=== PATIENT | female | born 2000 ===

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

== ENCOUNTER 2021-02-22 16:49 | Outpatient (CLI) | payer OTHER ==
[2021-02-22 17:38] VITALS: BP 122/77
== END 2021-02-22 18:59 | disposition home or self-care (01) ==
LOC: TRG 16:49 → APU 16:51 → TRG 18:59
PROVIDERS: ATTEND Obstetrics & Gynecology
DX: Z34.93 Encounter for supervision of normal pregnancy, unspecified, third trimester (principal); Z3A.40 40 weeks gestation of pregnancy
CPT/HCPCS: 59025

== ENCOUNTER 2021-02-26 18:57 | Inpatient (IN) | payer OTHER ==
[2021-02-26] MEDS ORDERED: OXYTOCIN 10 UNIT/1 ML INJ IM PRN (20:09)
[2021-02-26] MEDS ORDERED: NalbUPHINE 10 MG/1 ML INJ IV PRN (20:09)
[2021-02-26] MEDS ORDERED: MINERAL OIL 30 ML ORAL LIQD PO PRN (20:09)
[2021-02-26] MEDS ORDERED: LOPERAMIDE 2 MG CAP PO PRN (20:09)
[2021-02-26] MEDS ORDERED: TERBUTALINE 1 MG/1 ML INJ SUB-Q PRN (20:09)
[2021-02-26] MEDS ORDERED: miSOPROStol 200 MCG TAB PR PRN (20:09)
[2021-02-26] MEDS ORDERED: CARBOPROST TROMETHAMINE 250 MCG/1 ML INJ IM PRN (20:09)
[2021-02-26] MEDS ORDERED: ACETAMINOPHEN 325 MG TAB PO PRN (20:09)
[2021-02-26] MEDS ORDERED: ONDANSETRON 4 MG/2 ML INJ IV PRN (20:09)
[2021-02-26] MEDS ORDERED: LIDOCAINE (2%) 20 MG/1 ML VIAL 20 ML MDV INFILTRATI ONE (20:09)
[2021-02-26] MEDS ORDERED: METHYLERGONOVINE MALEATE 0.2 MG/ML VIAL IM PRN (20:09)
[2021-02-26] MEDS ORDERED: ePHEDrine SULFATE 50 MG/1 ML INJ IV PRN (20:09)
[2021-02-26] MEDS ORDERED: OXYTOCIN DRIP 30 UNITS/500 ML BAG IV SCH ×2 (21:00)
[2021-02-26 21:08] LABS: Hematocrit 33.4 % (30.3-42.9); Hemoglobin 11.1 gm/dl (10.1-14.3); Mean Corpuscular HGB Conc 33 % (30-34); Mean Corpuscular Volume 83 fl (79-97); Platelet Count 305 K/mm3 (140-440); Red Blood Count 4.02 M/mm3 (3.65-5.03); Red Cell Distribution Width 15.4 % (13.2-15.2)
[2021-02-26] MEDS: LACTATED RINGERS 1,000 ML IV SCH (23:09)
[2021-02-27] MEDS: fentaNYL 100 MCG/2 ML INJ IV PRN ×3 (01:04→06:19)
[2021-02-27] MEDS: LACTATED RINGERS 1,000 ML IV SCH ×2 (03:24→08:11)
[2021-02-27] MEDS ORDERED: NalbUPHINE 10 MG/1 ML INJ IV PRN (06:26)
[2021-02-27] MEDS ORDERED: ONDANSETRON 4 MG/2 ML INJ IV PRN (06:26)
[2021-02-27] MEDS ORDERED: LACTATED RINGERS 250 ML IV SOLN IV ONE (06:26)
[2021-02-27] MEDS ORDERED: NALOXONE 2 MG/2 ML INJ IV PRN (06:26)
[2021-02-27] MEDS ORDERED: diphenhydrAMINE 50 MG/ML VIAL IV PRN (06:26)
--- NOTE | 2021-02-27 06:41 | History and Physical Report ---
History of Present Illness Date of examination: 02/26/21 Date of admission: 02/26/2021 Chief complaint: my water broke History of present illness: Pt presents to triage with c/o SROM at 1700pm of clear fluid. Pt confirmed SROM by RN at time of admission. Clear fluid noted. GBS negative. EDC Confirmation: 02/22/2021 Gestational Age: 40 5/7 weeks Past History : 2 Term Births: 0 Premature Births: 0 Living Children: 0 Para: 0 Mult. Births: 0 Prev : 0 Aborta: 1 Elect. Ab: 0 Spont. 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 % Sun Exposure: occasionally Dietary Counseling: pn yes Past Medical History: Reviewed history and no changes required: 5 years ago: abnormal bleeding was put on Depo Asthma: Exercise induced Past Surgical History: Reviewed history and no changes required: negative Past Medical History Anesthesia Complications: negative Anemia: negative Autoimmune Disorder: negative Bleeding Disorder: negative Blood Transfusions: negative Breast Disease: negative Diabetes: negative Heart Disease: negative Hypertension: negative Hepatitis/Liver Disease: negative Kidney Disease/UTI: negative Neurologic/Epilepsy/Migraines: negative Phlebitis/Varicosities: negative Psychiatric: negative Pulmonary Disease/Asthma: negative Thyroid Disease: negative Hospitalizations: negative Surgery (Non-ob/gyn doctor): negative Abnormal PAP: negative ENEIDA Exposure: negative Infertility: negative Uterine Anomaly: negative Uterine Surgery (not C/S): negative Other Gynecologic Problems: negative Family Hx: DM: MGM Father: hole in heart had surgery 2 years ago Infection History Hx of STD: chlamydia HIV Risk Eval: no Hepatitis B Risk Eval: low risk Personal hx. of genital herpes: no Partner hx. of genital herpes: no Rash, Viral, or Febrile illness since last LMP? no Varicella/Chicken Pox Status: No TB Risk: no Genetic History Congenital Heart Defect: Mom: no Dad: no Macarena Disease: Mom: no Dad: no Thalassemia Mom: no Dad: no Neural Tube Defect Mom: no Dad: no Down's Syndrome Mom: no Dad: no Edward-Sachs Mom: no Dad: no Sickle Cell Disease/Trait Mom: no Dad: no Hemophilia Mom: no Dad: no Muscular Dystrophy Mom: no Dad: no Cystic Fibrosis Mom: no Dad: no Soledad Chorea Mom: no Dad: no Mental Retardation Mom: no Dad: no Fragile X Mom: no Dad: no Other Genetic/Chromosomal Disorder Mom: no Dad: no Child w/other defect Mom: no Dad: no Enviromental Exposures Enviromental Exposures Reviewed Xray Exposure: no Medication, drug, or alcohol use since LMP: no Chemical/Other Exposure: no Exposure to Cat Liter: no Hx of Parvovirus (Fifth Disease): no Occupational Exposure to Children: none Active Medications (reviewed today): ONDANSETRON 8 MG ORAL TABLET DISINTEGRATING (ONDANSETRON) 1 po q12hrs prn Current Allergies (reviewed today): No known allergies Past History Past Medical History: other (see hpi) Past Surgical History: other (see hpi) 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) Family/Genetic History: other (see hpi) Social history: other (see hpi) - Obstetrical History Expected Date of Delivery: 02/22/21 Actual Gestation: 40 Week(s) 5 Day(s) : 2 Medications and Allergies Allergies Allergy/AdvReac Type Severity Reaction Status Date / Time No Known Allergies Allergy Verified 12/18/20 18:26 Home Medications Medication Instructions Recorded Confirmed Last Taken Type No Known Home Medications [No 02/26/21 02/26/21 Unknown History Reported Home Medications] Active Meds: Active Medications Acetaminophen (Acetaminophen 325 Mg Tab) 650 mg PO Q4H PRN PRN Reason: Pain, Mild (1-3) Carboprost Tromethamine (Carboprost Tromethamine 250 Mcg/1 Ml Inj) 250 mcg IM ONCE PRN PRN Reason: Uterine Bleeding Diphenhydramine HCl (Diphenhydramine 50 Mg/Ml Vial) 12.5 mg IV Q2H PRN PRN Reason: Itching Ephedrine Sulfate (Ephedrine Sulfate 50 Mg/1 Ml Inj) 10 mg IV Q2M PRN PRN Reason: Hypotension Fentanyl (Fentanyl 100 Mcg/2 Ml Inj) 100 mcg IV Q2H PRN PRN Reason: Pain,Severe (7-10) LABOR PAIN Last Admin: 02/27/21 06:19 Dose: 100 mcg Documented by: Oxytocin/Sodium Chloride (Pitocin/Ns 30 Unit/500ml) 30 units in 500 mls @ 2 mls/hr IV TITR SHAMAR; Protocol Last Admin: 02/26/21 23:15 Dose: 2 ml/hr, 2 mls/hr Documented by: Lactated Ringer's (Lactated Ringers) 1,000 mls @ 125 mls/hr IV DIRECT SHAMAR Last Admin: 02/27/21 03:24 Dose: 125 mls/hr Documented by: Oxytocin/Sodium Chloride (Pitocin/Ns 30 Unit/500ml) 30 units in 500 mls @ 40 mls/hr IV TITR SHAMAR; Protocol Fentanyl/Bupivacaine/Sodium Chlor (Fentanyl-Bupiv 2 Mcg/Ml-0.125%) 200 mcg in 100 mls @ 12 mls/hr EPIDURAL TITR SHAMAR; Protocol Loperamide HCl (Loperamide 2 Mg Cap) 2 mg PO ONCE PRN PRN Reason: give with Hemabate Methylergonovine Maleate (Methylergonovine Maleate 0.2 Mg/Ml Vial) 0.2 mg IM ONCE PRN PRN Reason: Uterine Bleeding Mineral Oil (Mineral Oil 30 Ml Oral Liqd) 30 ml PO QHS PRN PRN Reason: Constipation Misoprostol (Misoprostol 200 Mcg Tab) 800 mcg [place] ONCE PRN PRN Reason: Uterine Bleeding Nalbuphine HCl (Nalbuphine 10 Mg/1 Ml Inj) 10 mg IV Q2H PRN PRN Reason: Pain, Moderate (4-6) Nalbuphine HCl (Nalbuphine 10 Mg/1 Ml Inj) 2.5 mg IV Q2H PRN PRN Reason: Itching Naloxone HCl (Naloxone 2 Mg/2 Ml Inj) 0.2 mg IV Q5M PRN PRN Reason: Respiratory sedation Ondansetron HCl (Ondansetron 4 Mg/2 Ml Inj) 4 mg IV Q8H PRN PRN Reason: Nausea And Vomiting Oxytocin (Oxytocin 10 Unit/1 Ml Inj) 10 unit IM ONCE PRN PRN Reason: Uterine Bleeding Terbutaline Sulfate (Terbutaline 1 Mg/1 Ml Inj) 0.25 mg SUB-Q ONCE PRN PRN Reason: Hyperstimulation/Hypertonicity - Vital Signs Vital signs: Vital Signs Pulse Pulse Ox 115 H 98 02/26/21 19:39 02/26/21 19:39 Temp Pulse Resp BP Pulse Ox 98.2 F 72 17 139/88 96 02/27/21 04:25 02/27/21 06:36 02/27/21 04:25 02/27/21 06:13 02/27/21 06:36 - Physical Exam Lungs: Positive: Clear to auscultation, Normal air movement Abdomen: Positive: normal appearance, soft Genitourinary (Female): Positive: normal external genitalia, normal perenium. Negative: perineal/vulvar lesions - Obstetrical FHR: category 1 Cervical Dilatation: 5.5 Cervical Effacement Percentage: 80 station: -1 Uterine Contraction Pattern: Regular Uterine Tone Measurement Phase: Resting Uterine Contraction Intensity: Moderate Results Result Diagrams: 02/26/21 20:45 Abnormal lab results 02/26/21 Range/Units 20:45 WBC 14.5 H (4.5-11.0) K/mm3 RDW 15.4 H (13.2-15.2) % All other labs normal. Assessment and Plan - Patient Problems (1) 40 weeks gestation of Current Visit: Yes Status: Acute (2) SROM (spontaneous rupture of membranes) Current Visit: Yes Status: Acute Plan to address problem: -anticipate -awaiting epidural placement -cont pitocin
--- NOTE | 2021-02-27 06:43 | Event Note ---
Date: 02/27/21 Rewiew of chart shows pt has had some variable decels mostly early. Provider was not made aware. Will place internal monitors at this time. Explained to pt the importance of these monitors for accurate tracing of the baby. All risk, benefits and alternatives were also d/w pt. Pt also noted to have elevated blood pressures again provider was not aware until this time and PIH labs have been ordered. Internal montiors placed w/o difficulty cx is 5-6/80/-1
[2021-02-27] MEDS ORDERED: fentaNYL-BUPIV 2 MCG/ML-0.125% 200 MCG/100 ML BAG EPIDURAL SCH (07:00)
[2021-02-27 07:53] LABS: Alanine Aminotransferase 12 units/L (7-56); Albumin 3.4 g/dL (3.9-5); Blood Urea Nitrogen 9 mg/dL (7-17); Calcium 8.8 mg/dL (8.4-10.2); Hemolysis Index 2
--- NOTE | 2021-02-27 07:57 | Anesthesia Consultation ---
Anesthesia Consult and Med Hx Date of service: 02/27/21 - Airway Anesthetic Teeth Evaluation: Good ROM Head & Neck: Adequate Mental/Hyoid Distance: Adequate Mallampati Class: Class II Intubation Access Assessment: Probably Good - Pulmonary Exam CTA: Yes - Cardiac Exam Cardiac Exam: RRR - Pre-Operative Health Status ASA Pre-Surgery Classification: ASA2 Proposed Anesthetic Plan: Epidural - Pulmonary Hx Smoking: Yes Hx Asthma: Yes (last attack about 3 years ago) COPD: No Hx Pneumonia: No Hx Sleep Apnea: No - Cardiovascular System Hx Hypertension: No Hx Heart Attack/AMI: No Hx Angina: No - Central Nervous System Hx Seizures: No Hx Psychiatric Problems: No - Gastrointestinal Hx Gastroesophageal Reflux Disease: No - Endocrine Hx Renal Disease: No Hx End Stage Renal Disease: No Hx Liver Disease: No Hx Insulin Dependent Diabetes: No Hx Non-Insulin Dependent Diabetes: No Hx Hypothyroidism: No Hx Hyperthyroidism: No - Hematic Hx Anemia: No Hx Sickle Cell Disease: No - Other Systems Hx Alcohol Use: No
--- NOTE | 2021-02-27 07:59 | Progress Note ---
Labor Epidural - Labor Epidural Start Time: 07:30 Stop Time: 07:45 Performed by:: LESLIE HARTMAN [facility] Procedure: Patient is requesting epidural for labor and pain. H&P, labs were reviewed. Patient IDed, H&P reviewed, all questions and concerns were answered, and consent was signed. Timeout was performed at bedside. Patient in sitting position. Sterile prep and drape was performed. 3ml of 1% lidocaine skin wheal at L[3]- L [4]. 18-gauge [employer] epidural needle was advanced to loss of resistance with air technique 7cm. Negative CSF negative blood. Epidural catheter advanced to [12] centimeters. [negative] Aspiration [negative] test dose. Sterile dressing applied. Patient tolerated procedure.
[2021-02-27 08:01] LABS: BUN/Creatinine Ratio 18
[2021-02-27] MEDS: ePHEDrine SULFATE 50 MG/1 ML INJ IV PRN ×2 (08:16→08:34)
--- NOTE | 2021-02-27 08:34 | Progress Note ---
Assessment and Plan A: 21yo female @ 40+ weeks, on left side S/P epidural d/t low B/P and decels, decels resolved w/ intervention. Pt comfortable S/P epidural. SVE performed, /2. P: Reposition pt in 1 hour and PRN for labor progress, reassess PRN Subjective - Subjective Date of service: 02/27/21 Principal diagnosis: IUP @ 40+WEEKS Objective - Vital Signs Vital Signs: Vital Signs - 12hr 02/26/21 02/26/21 02/26/21 20:34 20:39 20:44 Temperature Pulse Rate 106 H 95 H 93 H Respiratory Rate Blood Pressure O2 Sat by Pulse 98 98 97 Oximetry O2 Sat by Pulse Oximetry [ Anterior Bilateral Throughout] 02/26/21 02/26/21 02/26/21 20:48 20:49 20:54 Temperature Pulse Rate 107 H 88 101 H Respiratory Rate Blood Pressure O2 Sat by Pulse 94 94 96 Oximetry O2 Sat by Pulse Oximetry [ Anterior Bilateral Throughout] 02/26/21 02/26/21 02/26/21 20:59 21:04 21:09 Temperature Pulse Rate 107 H 107 H 97 H Respiratory Rate Blood Pressure O2 Sat by Pulse 96 97 97 Oximetry O2 Sat by Pulse Oximetry [ Anterior Bilateral Throughout] 02/26/21 02/26/21 02/26/21 21:14 21:19 21:24 Temperature Pulse Rate 108 H 111 H 105 H Respiratory Rate Blood Pressure O2 Sat by Pulse 98 97 95 Oximetry O2 Sat by Pulse Oximetry [ Anterior Bilateral Throughout] 02/26/21 02/26/21 02/26/21 21:27 21:38 21:46 Temperature 98.4 F Pulse Rate 103 H 119 H Respiratory 18 Rate Blood Pressure O2 Sat by Pulse 94 95 Oximetry O2 Sat by Pulse 96 Oximetry [ Anterior Bilateral Throughout] 02/26/21 02/26/21 02/26/21 21:51 21:56 22:01 Temperature Pulse Rate 110 H 100 H 107 H Respiratory Rate Blood Pressure O2 Sat by Pulse 96 96 97 Oximetry O2 Sat by Pulse Oximetry [ Anterior Bilateral Throughout] 02/26/21 02/26/21 02/26/21 22:06 22:11 22:16 Temperature Pulse Rate 104 H 109 H 104 H Respiratory Rate Blood Pressure O2 Sat by Pulse 97 96 96 Oximetry O2 Sat by Pulse Oximetry [ Anterior Bilateral Throughout] 02/26/21 02/26/21 02/26/21 22:21 22:26 22:31 Temperature Pulse Rate 93 H 100 H 99 H Respiratory Rate Blood Pressure O2 Sat by Pulse 98 97 95 Oximetry O2 Sat by Pulse Oximetry [ Anterior Bilateral Throughout] 02/26/21 02/26/21 02/26/21 22:32 22:36 22:40 Temperature Pulse Rate 101 H 105 H 108 H Respiratory Rate Blood Pressure O2 Sat by Pulse 94 97 94 Oximetry O2 Sat by Pulse Oximetry [ Anterior Bilateral Throughout] 02/26/21 02/26/21 02/26/21 22:41 22:46 22:51 Temperature Pulse Rate 92 H 102 H 103 H Respiratory Rate Blood Pressure O2 Sat by Pulse 96 97 96 Oximetry O2 Sat by Pulse Oximetry [ Anterior Bilateral Throughout] 02/26/21 02/26/21 02/26/21 22:56 22:58 23:01 Temperature Pulse Rate 100 H 107 H 103 H Respiratory Rate Blood Pressure O2 Sat by Pulse 95 94 96 Oximetry O2 Sat by Pulse Oximetry [ Anterior Bilateral Throughout] 02/26/21 02/26/21 02/26/21 23:03 23:06 23:11 Temperature Pulse Rate 90 106 H 120 H Respiratory Rate Blood Pressure O2 Sat by Pulse 94 96 96 Oximetry O2 Sat by Pulse Oximetry [ Anterior Bilateral Throughout] 02/26/21 02/26/21 02/26/21 23:15 23:16 23:21 Temperature Pulse Rate 96 H 91 H 93 H Respiratory Rate Blood Pressure O2 Sat by Pulse 94 96 96 Oximetry O2 Sat by Pulse Oximetry [ Anterior Bilateral Throughout] 02/26/21 02/26/21 02/26/21 23:26 23:31 23:36 Temperature Pulse Rate 84 92 H 93 H Respiratory Rate Blood Pressure O2 Sat by Pulse 98 97 96 Oximetry O2 Sat by Pulse Oximetry [ Anterior Bilateral Throughout] 02/26/21 02/26/21 02/26/21 23:41 23:46 23:51 Temperature Pulse Rate 95 H 95 H 91 H Respiratory Rate Blood Pressure O2 Sat by Pulse 96 96 96 Oximetry O2 Sat by Pulse Oximetry [ Anterior Bilateral Throughout] 02/26/21 02/27/21 02/27/21 23:56 00:01 00:06 Temperature Pulse Rate 91 H 96 H 94 H Respiratory Rate Blood Pressure O2 Sat by Pulse 95 96 96 Oximetry O2 Sat by Pulse Oximetry [ Anterior Bilateral Throughout] 02/27/21 02/27/21 02/27/21 00:11 00:16 00:17 Temperature Pulse Rate 109 H 104 H 106 H Respiratory Rate Blood Pressure O2 Sat by Pulse 96 95 92 Oximetry O2 Sat by Pulse Oximetry [ Anterior Bilateral Throughout] 02/27/21 02/27/21 02/27/21 00:21 00:26 00:29 Temperature Pulse Rate 99 H 97 H 93 H Respiratory Rate Blood Pressure O2 Sat by Pulse 95 95 92 Oximetry O2 Sat by Pulse Oximetry [ Anterior Bilateral Throughout] 02/27/21 02/27/21 02/27/21 00:31 00:35 00:36 Temperature Pulse Rate 92 H 67 86 Respiratory Rate Blood Pressure O2 Sat by Pulse 96 85 98 Oximetry O2 Sat by Pulse Oximetry [ Anterior Bilateral Throughout] 02/27/21 02/27/21 02/27/21 03:34 03:39 03:40 Temperature Pulse Rate 82 78 94 H Respiratory Rate Blood Pressure O2 Sat by Pulse 95 97 93 Oximetry O2 Sat by Pulse Oximetry [ Anterior Bilateral Throughout] 02/27/21 02/27/21 02/27/21 03:44 03:49 03:54 Temperature Pulse Rate 94 H 81 77 Respiratory Rate Blood Pressure O2 Sat by Pulse 99 97 97 Oximetry O2 Sat by Pulse Oximetry [ Anterior Bilateral Throughout] 02/27/21 02/27/21 02/27/21 03:59 04:04 04:09 Temperature Pulse Rate 80 77 75 Respiratory Rate Blood Pressure O2 Sat by Pulse 96 98 97 Oximetry O2 Sat by Pulse Oximetry [ Anterior Bilateral Throughout] 02/27/21 02/27/21 02/27/21 04:14 04:19 04:24 Temperature Pulse Rate 81 90 87 Respiratory Rate Blood Pressure O2 Sat by Pulse 98 97 99 Oximetry O2 Sat by Pulse Oximetry [ Anterior Bilateral Throughout] 02/27/21 02/27/21 02/27/21 04:25 04:29 04:34 Temperature 98.2 F Pulse Rate 66 81 Respiratory 17 Rate Blood Pressure O2 Sat by Pulse 99 98 Oximetry O2 Sat by Pulse Oximetry [ Anterior Bilateral Throughout] 02/27/21 02/27/21 02/27/21 04:39 04:44 04:49 Temperature Pulse Rate 78 73 86 Respiratory Rate Blood Pressure O2 Sat by Pulse 98 99 100 Oximetry O2 Sat by Pulse Oximetry [ Anterior Bilateral Throughout] 02/27/21 02/27/21 02/27/21 04:54 04:59 05:12 Temperature Pulse Rate 79 82 93 H Respiratory Rate Blood Pressure 146/72 O2 Sat by Pulse 98 99 98 Oximetry O2 Sat by Pulse Oximetry [ Anterior Bilateral Throughout] 02/27/21 02/27/21 02/27/21 05:17 05:22 05:27 Temperature Pulse Rate 76 89 83 Respiratory Rate Blood Pressure O2 Sat by Pulse 98 95 99 Oximetry O2 Sat by Pulse Oximetry [ Anterior Bilateral Throughout] 02/27/21 02/27/21 02/27/21 05:32 05:35 05:37 Temperature Pulse Rate 99 H 80 78 Respiratory Rate Blood Pressure O2 Sat by Pulse 96 91 98 Oximetry O2 Sat by Pulse Oximetry [ Anterior Bilateral Throughout] 02/27/21 02/27/21 02/27/21 05:42 05:46 05:52 Temperature Pulse Rate 73 70 79 Respiratory Rate Blood Pressure O2 Sat by Pulse 99 98 97 Oximetry O2 Sat by Pulse Oximetry [ Anterior Bilateral Throughout] 02/27/21 02/27/21 02/27/21 05:57 06:02 06:07 Temperature Pulse Rate 74 81 83 Respiratory Rate Blood Pressure O2 Sat by Pulse 98 96 97 Oximetry O2 Sat by Pulse Oximetry [ Anterior Bilateral Throughout] 02/27/21 02/27/21 02/27/21 06:12 06:13 06:17 Temperature Pulse Rate 91 H 88 85 Respiratory Rate Blood Pressure 139/88 O2 Sat by Pulse 96 97 Oximetry O2 Sat by Pulse Oximetry [ Anterior Bilateral Throughout] 02/27/21 02/27/21 02/27/21 06:21 06:27 06:32 Temperature Pulse Rate 89 89 86 Respiratory Rate Blood Pressure O2 Sat by Pulse 96 96 95 Oximetry O2 Sat by Pulse Oximetry [ Anterior Bilateral Throughout] 02/27/21 02/27/21 02/27/21 06:36 06:42 06:47 Temperature Pulse Rate 72 78 88 Respiratory Rate Blood Pressure O2 Sat by Pulse 96 95 94 Oximetry O2 Sat by Pulse Oximetry [ Anterior Bilateral Throughout] 02/27/21 02/27/21 02/27/21 06:52 06:57 07:02 Temperature Pulse Rate 77 75 80 Respiratory Rate Blood Pressure O2 Sat by Pulse 96 96 97 Oximetry O2 Sat by Pulse Oximetry [ Anterior Bilateral Throughout] 02/27/21 02/27/21 02/27/21 07:07 07:11 07:12 Temperature Pulse Rate 78 85 90 Respiratory Rate Blood Pressure O2 Sat by Pulse 95 93 97 Oximetry O2 Sat by Pulse Oximetry [ Anterior Bilateral Throughout] 02/27/21 02/27/21 02/27/21 07:17 07:22 07:25 Temperature Pulse Rate 89 83 72 Respiratory Rate Blood Pressure 130/90 O2 Sat by Pulse 93 97 Oximetry O2 Sat by Pulse Oximetry [ Anterior Bilateral Throughout] 02/27/21 02/27/21 02/27/21 07:27 07:32 07:36 Temperature Pulse Rate 84 83 85 Respiratory Rate Blood Pressure O2 Sat by Pulse 97 96 96 Oximetry O2 Sat by Pulse Oximetry [ Anterior Bilateral Throughout] 02/27/21 02/27/21 02/27/21 07:42 07:47 07:49 Temperature Pulse Rate 101 H 94 H 82 Respiratory Rate Blood Pressure 128/62 O2 Sat by Pulse 98 97 88 Oximetry O2 Sat by Pulse Oximetry [ Anterior Bilateral Throughout] 02/27/21 02/27/21 02/27/21 07:50 07:52 07:55 Temperature Pulse Rate 83 75 Respiratory 16 Rate Blood Pressure 119/56 112/57 O2 Sat by Pulse 97 Oximetry O2 Sat by Pulse Oximetry [ Anterior Bilateral Throughout] 02/27/21 02/27/21 02/27/21 07:57 07:58 08:01 Temperature Pulse Rate 70 66 71 Respiratory Rate Blood Pressure 107/59 109/56 O2 Sat by Pulse 95 Oximetry O2 Sat by Pulse Oximetry [ Anterior Bilateral Throughout] 02/27/21 02/27/21 02/27/21 08:02 08:04 08:07 Temperature Pulse Rate 71 76 74 Respiratory Rate Blood Pressure 101/53 102/57 O2 Sat by Pulse 97 97 Oximetry O2 Sat by Pulse Oximetry [ Anterior Bilateral Throughout] 02/27/21 02/27/21 02/27/21 08:10 08:12 08:13 Temperature Pulse Rate 67 71 67 Respiratory Rate Blood Pressure 106/55 95/50 O2 Sat by Pulse 97 Oximetry O2 Sat by Pulse Oximetry [ Anterior Bilateral Throughout] 02/27/21 02/27/21 02/27/21 08:16 08:17 08:20 Temperature Pulse Rate 61 61 59 L Respiratory Rate Blood Pressure 96/55 111/56 O2 Sat by Pulse 98 Oximetry O2 Sat by Pulse Oximetry [ Anterior Bilateral Throughout] 02/27/21 02/27/21 02/27/21 08:22 08:25 08:27 Temperature Pulse Rate 62 76 68 Respiratory Rate Blood Pressure 111/59 102/55 O2 Sat by Pulse 99 99 Oximetry O2 Sat by Pulse Oximetry [ Anterior Bilateral Throughout] - Exam Cardiovascular: Regular rate Lungs: Normal air movement Abdomen: Present: normal appearance, soft Vulva: both: normal Uterus: Present: normal FHR: category 2 FHR comments: Decels after epidural d/t low B/P, resolved w/ intrauterine resus. Uterine Contraction Monitor Mode: Internal Cervical Dilatation: 6 Cervical Effacement Percentage: 80 station: -2 Uterine Contraction Frequency (min): 4-5 Uterine Contraction Pattern: Regular Uterine Tone Measurement Phase: Contraction Uterine Contraction Intensity: Moderate - Labs Labs: Abnormal Labs 02/26/21 02/27/21 02/27/21 20:45 07:04 07:04 WBC 14.5 H RDW 15.4 H Carbon Dioxide 17 L Creatinine 0.5 L 0.5 L Alkaline Phosphatase 193 H Total Protein 5.7 L Albumin 3.4 L Laboratory Results - last 24 hr 02/26/21 02/26/21 02/26/21 20:45 20:45 20:45 WBC 14.5 H RBC 4.02 Hgb 11.1 Hct 33.4 MCV 83 MCH 28 MCHC 33 RDW 15.4 H Plt Count 305 Sodium Potassium Chloride Carbon Dioxide Anion Gap BUN Creatinine Estimated GFR BUN/Creatinine Ratio Glucose Calcium Total Bilirubin AST ALT Alkaline Phosphatase Lactate Dehydrogenase Total Protein Albumin Albumin/Globulin Ratio Syphilis IgG Antibody Nonreactive Blood Type A POSITIVE Antibody Screen Negative 02/27/21 02/27/21 07:04 07:04 WBC RBC Hgb Hct MCV MCH MCHC RDW Plt Count Sodium 138 Potassium 4.0 Chloride 106.5 Carbon Dioxide 17 L Anion Gap 19 BUN 9 Creatinine 0.5 L 0.5 L Estimated GFR > 60 > 60 BUN/Creatinine Ratio 18 Glucose 74 Calcium 8.8 Total Bilirubin 0.20 AST 21 ALT 12 Alkaline Phosphatase 193 H Lactate Dehydrogenase 176 Total Protein 5.7 L Albumin 3.4 L Albumin/Globulin Ratio 1.5 Syphilis IgG Antibody Blood Type Antibody Screen
[2021-02-27] MEDS ORDERED: SODIUM CHLORIDE 0.9% 1000 ML 1,000 ML VG SCH (09:15)
--- NOTE | 2021-02-27 09:35 | Event Note ---
Date: 02/27/21 ( decelerations) Called by RN d/t heart rate decelerations. Upon entering room the heart rate had recovered with interventions. Then 5 minutes later there was another prolonged deceleration for about 3 minutes. There was heart rate recovery, but the Pitocin had been turned off so I discussed with the patient the need for a at this time because the baby did not seem to tolerate labor, her cervical exam was only 7/80/-1, and that we had to turn off the medicine that makes her contract. Pt began to cry but verbalized understanding. I also spoke with the patient's mother regarding need for (with the patient's permission). Dr. Jefferson called and updated on patient's and status. orders placed and patient being prepped for . supervisor steno pool and patient taking care of patient aware.
[2021-02-27] MEDS ORDERED: PROMETHAZINE 25 MG RECT SUPP PR PRN (09:49)
[2021-02-27] MEDS ORDERED: PROMETHAZINE 25 MG TAB PO PRN (09:49)
[2021-02-27] MEDS ORDERED: HYDROmorphone 1 MG/1 ML INJ IV PRN (09:49)
[2021-02-27] MEDS ORDERED: NALOXONE 0.4 MG/1 ML INJ IV PRN ×2 (09:49→13:59)
--- NOTE | 2021-02-27 09:51 | Anesthesia Day of Surgery ---
Anesthesia Day of Surgery - Day of Surgery Patient Examined: Yes Patient H&P Reviewed: Yes Patient is NPO: Yes Beta Blockers: No Cardiac Clearance: No Pulmonary Clearance: No Dani's Test: N/A
[2021-02-27] MEDS ORDERED: KETOROLAC 30 MG/1 ML INJ ONE (09:54)
[2021-02-27] MEDS ORDERED: ONDANSETRON 4 MG/2 ML INJ ONE (09:54)
[2021-02-27] MEDS ORDERED: ceFAZolin/STERILE WATER 2 GM/20 ML SYRINGE IV ONE (09:55)
[2021-02-27] MEDS ORDERED: LIDOCAINE 2%/EPINEPHRINE 1:200,000 VIAL (20 ML) INFILTRATI ONE (09:55)
[2021-02-27] MEDS ORDERED: LACTATED RINGERS 1,000 ML IV SCH (10:00)
[2021-02-27] MEDS ORDERED: BICITRA ORAL LIQD 30ML PO ONE (10:00)
[2021-02-27] MEDS ORDERED: METOCLOPRAMIDE 10 MG/2 ML INJ IV ONE (10:00)
[2021-02-27] MEDS ORDERED: ceFAZolin/Water 2 GM/20 ML 2 GM/20 ML SYRINGE IV NR (10:00)
[2021-02-27] MEDS ORDERED: SODIUM CHLORIDE 0.9% 1000 ML 1,000 ML IV ONE (10:00)
[2021-02-27] MEDS ORDERED: FAMOTIDINE 20 MG/2 ML INJ IV ONE (10:00)
[2021-02-27] MEDS ORDERED: fentaNYL 100 MCG/2 ML INJ ONE (10:14)
--- NOTE | 2021-02-27 10:20 | Event Note ---
Date: 02/27/21 Severe variables with intermittent bradycardia, Only 7cm dilated. Intrauterine resus measures performed. Early decels noted however pitocin off and O2 palced. Diagnosis and options discussed. Risks and benefits of continued MIKE vs C/S explained. She desires to proceed with C/S Consent reviewed and signed.
[2021-02-27] MEDS ORDERED: BUPIVACAINE/PF (0.25%) 2.5 MG/ML 30 ML VIAL INFILTRATI ONE (10:31)
[2021-02-27] MEDS ORDERED: dexAMETHasone 20 MG/5 ML VIAL ONE (10:33)
[2021-02-27 10:34] LABS: Bilirubin,Urine NEG (Negative); Blood,Urine NEG (Negative); Color,Urine Yellow (Yellow); Mucus,Urine FEW /HPF; Protein,Urine <15 mg/dL mg/dL (Negative); Urobilinogen,Urine < 2.0 mg/dL (<2.0); WBC,Urine < 1.0 /HPF (0.0-6.0)
--- NOTE | 2021-02-27 11:01 | Operative Report ---
Operative Report Operative Report: Date of operation: 02/27/2021 Pre-operative diagnosis: 1. Intrauterine at 40 weeks gestational age 2. intolerance to labor 3. BMI 32.3 kg/m Post-operative diagnosis: 1. Intrauterine at 40 weeks gestational age 2. intolerance to labor 3. BMI 32.3 kg/m Procedure name(s): Primary low transverse uterine incision Surgeon: Shonda Jefferson MD E Learning Specialist: Mouna Menendez CNM Anesthesia: Epidural QBL: Not available at dictation mL Urine output: 400 mL of clear urine out at the end of the procedure Fluids: 600 mL Findings: Liveborn male infant weight 7 Lbs. 12 oz. Apgars of 8 and 9 at one and 5 minutes. Grossly normal uterus tubes and ovaries. Umbilical cord wrapped around infant's body and legs. Procedure: Patient was taking to the operating room. Epidural anesthesia was both. Patient was then prepped and draped in the usual sterile fashion Timeout was performed. Once an appropriate level of anesthesia was noted, a Pfannenstiel incision was made and extended the fascia which was incised and extended lateral direction. The overlying fascia was sharply dissected away from the underlying rectus muscles in the superior inferior direction. The midline was entered bluntly. Bladder blade was placed. Vesicouterine fold was incised with blunt dissection bladder flap was created. A transverse incision was made in the lower uterine segment and extended superolateral direction with finger fractionation. Clear fluid was noted. Infant was delivered from the cephalic OA position, caput noted, with spontaneous cry and excellent tone. Mouth and nose bulb suctioned. Cord was doubly clamped and cut infant was given to the resuscitation team present. Placenta was delivered. The uterus was exteriorized and cleaned of any further placental tissue and products of conception. Uterine incision was approximated using 0 Vicryl in a running i nterlocking stitch followed by further suture of 0 Vicryl in imbricating fashion. When hemostasis was noted the uterus was allowed back in the pelvic cavity. Pelvis was irrigated with warm normal saline. Once hemostasis was noted the rectus muscles were approximated using 0 Vicryl interrupted simple stitches 3. Once hemostasis was noted the fascia was approximated using 0 Vicryl simple running stitch. The incision was irrigated with warm saline, once hemostasis as noted, the subcuticular adipose tissue was reapproximated using 3- 0 Vicryl in a simple running fashion. Skin was approximated using 4-0 Vicryl on a Librado needle in a subcuticular manner. Counts were correct x3. Patient tolerated the procedure well, she was taken to recovery room in stable condition.
[2021-02-27] MEDS ORDERED: miSOPROStol 100 MCG TAB ONE (11:24)
[2021-02-27] MEDS ORDERED: traMADol 50 MG TAB PO PRN (13:59)
[2021-02-27] MEDS ORDERED: LANOLIN/ZINC/DIMETHICONE (LANSINOH) 7 GM TP PRN (13:59)
[2021-02-27] MEDS ORDERED: WITCH HAZEL/ GLYCERIN PAD TP PRN (13:59)
[2021-02-27] MEDS ORDERED: SENNOSIDES 8.6 MG TAB PO PRN (13:59)
[2021-02-27] MEDS ORDERED: OXYTOCIN DRIP 30 UNITS/500 ML BAG IV SCH (13:59)
[2021-02-27] MEDS ORDERED: MAGNESIUM HYDROXIDE (MOM) ORAL LIQD UDC PO PRN (13:59)
[2021-02-27] MEDS ORDERED: SIMETHICONE 80 MG CHEW TAB PO PRN (13:59)
[2021-02-27] MEDS ORDERED: MORPHINE 4 MG/1 ML INJ IV PRN (13:59)
[2021-02-27] MEDS ORDERED: MORPHINE 2 MG/1 ML INJ IV PRN (13:59)
[2021-02-27] MEDS ORDERED: D5W/LACTATED RINGERS 1,000 ML IV ONE (14:43)
[2021-02-27] MEDS ORDERED: ACETAMINOPHEN 500 MG TAB PO PRN (14:45)
[2021-02-27] MEDS: D5W/LACTATED RINGERS 1,000 ML IV SCH ×2 (16:56→22:07)
[2021-02-27] MEDS: KETOROLAC 30 MG/1 ML INJ IV SCH (18:03)
[2021-02-27] MEDS: ceFAZolin/NS 1 GM/50 ML 1 GM/50 ML BAG IV SCH (18:07)
[2021-02-28] MEDS: KETOROLAC 30 MG/1 ML INJ IV SCH ×3 (03:41→18:12)
[2021-02-28] MEDS: ceFAZolin/NS 1 GM/50 ML 1 GM/50 ML BAG IV SCH (03:42)
[2021-02-28] MEDS ORDERED: TETANUS,DIPH,PERTUSS(ACELL) VACCINE 0.5 ML SYRINGE IM ONE (06:00)
[2021-02-28 07:52] LABS: Hemoglobin 8.6 gm/dl (10.1-14.3)
[2021-02-28] MEDS: PRENATAL VIT27-FE FUMARATE-FOLIC ACID VIT TAB PO SCH (11:01)
[2021-02-28] MEDS ORDERED: IBUPROFEN 600 MG TAB PO PRN (11:12)
--- NOTE | 2021-02-28 12:12 | Post Anesthesia Evaluation ---
- Post Anesthesia Evaluation Patient Participated: Yes Airway Patent: Yes Stable Respiratory Function: Yes Nausea/Vomiting: No Temp > 96.8F: Yes Pain Manageable: Yes Adequeate Hydration: Yes Anesthesia Complications: No Block Receding Appropriately: Yes Patient on Ventilator: No
[2021-02-28] MEDS: oxyCODONE /ACETAMINOPHEN 5-325MG TAB PO PRN (12:36)
--- NOTE | 2021-02-28 12:49 | Progress Note ---
Assessment and Plan A: 21 y.o. s/p primary , POD #1. P: Continue with care. Encourage ambulation. Advance diet as tolerated. Anticipate discharge home on 03/01/21. Subjective - Subjective Date of service: 02/28/21 Principal diagnosis: s/p primary , POD #1 Patient reports: appetite normal, voiding normally, pain well controlled, flatus, ambulating normally [place]: doing well Objective - Vital Signs Latest vital signs: Vital Signs Temp Pulse Resp BP BP Pulse Ox Pulse Ox 02/28/21 07:40 98.1 F 94 H 18 115/73 97 02/28/21 06:22 98 02/28/21 04:00 98.7 F 71 18 114/78 02/28/21 03:31 98 02/28/21 01:39 98 02/28/21 00:13 98.5 F 61 18 110/60 97 02/28/21 00:05 98 02/27/21 22:04 98 02/27/21 20:32 98.9 F 88 18 118/67 93 02/27/21 20:00 98 02/27/21 16:21 97.9 F 57 L 18 124/77 96 Intake and Output 02/27/21 02/28/21 02/28/21 22:59 06:59 14:59 Intake Total 697.917 200 120 Output Total 3600 100 100 Balance -2902.083 100 20 Intake: IV 697.917 ANCEF/NS 1 GM/50 ML 1 gm 50 In 50 ml @ 100 mls/hr IV Q8H SHAMAR Rx#:[id number] D5lr 1,000 ml @ 125 mls/ 647.917 hr IV DIRECT SHAMAR Rx#: [id number] Oral 200 120 Output: Urine 3600 100 100 Indwelling 900 Indwelling Catheter 2700 Void 100 100 Other: Total, Intake Amount 200 120 Total, Output Amount 900 100 100 # Voids Void 1 1 - Exam Narrative Exam: Discussed with patient how to take care of herself when she is discharged home. We also discussed incision care at home. Breasts: Present: deferred Cardiovascular: Present: Regular rate Lungs: Present: Normal air movement Abdomen: Present: normal appearance, soft Vulva: both: normal Uterus: Present: normal, firm Extremities: Present: normal Incision: Present: normal, dry, intact, other (NO s/sx of infection, no drainage noted. ) - Labs Labs: Abnormal lab results 02/28/21 Range/Units 07:11 Hgb 8.6 L (10.1-14.3) gm/dl Hct 27.0 L D (30.3-42.9) %
[2021-03-01] MEDS: oxyCODONE /ACETAMINOPHEN 5-325MG TAB PO PRN (00:31)
[2021-03-01] MEDS: IBUPROFEN 800 MG TAB PO PRN ×2 (06:26→14:21)
[2021-03-01] MEDS: PRENATAL VIT27-FE FUMARATE-FOLIC ACID VIT TAB PO SCH (10:35)
--- NOTE | 2021-03-01 11:22 | Discharge Summary ---
Providers - Providers Date of Admission: 02/27/21 10:16 Date of discharge: 03/01/21 Attending physician: ZAID AGUAYO 02/27/21 13:59 Consult to Vision Therapist [CONS] Routine Reason For Exam: Primary care physician: ZAID AGUAYO Hospitalization Reason for admission: rupture of membranes Delivery: Procedure: section Procedure details: see op note Incision: normal, dry, intact Other procedures: none baby: male Hospital course: Pt s/p c/s due to intolerance to labor. She had routine pp/post op care. Pt d/c to home POD #2 in stable condition. Condition at discharge: Good Disposition: 01 HOME / SELF CARE / HOMELESS - Discharge Diagnoses (1) 40 weeks gestation of Status: Acute (2) SROM (spontaneous rupture of membranes) Status: Acute (3) delivery delivered Status: Acute Plan - Discharge Medications Prescriptions: Docusate Sodium [Colace] 100 mg PO BID PRN #30 capsule PRN Reason: Constipation Lidocain2.5%/Prilocai2.5% [Emla] 5 gm TP ONCE #1 tube Ferrous Sulfate [Feosol 325 MG tab] 325 mg PO BID #90 tablet Ibuprofen [Motrin 800 MG tab] 800 mg PO TID PRN #30 tablet PRN Reason: Pain oxyCODONE /ACETAMINOPHEN [Percocet 5/325 mg] 1 - 2 tab PO Q6HR PRN #14 tablet PRN Reason: Pain - Provider Discharge Summary Activity: routine, no sex for 6 weeks, no heavy lifting 4 weeks Diet: routine Instructions: routine Additional instructions: [] Smoking cessation referral if applicable(refer to patient education folder for contact #) [] Refer to [facility]'s [facility] Booklet Call your doctor immediately for: * Fever > 100.5 * Heavy vaginal bleeding ( >1 pad per hour) * Severe persistent headache * Shortness of breath * Reddened, hot, painful area to leg or breast * Drainage or odor from incision. * Keep incision clean and dry at all times and follow doctor's instructions regarding bathing/showering - Follow up plan Follow up: ZAID AGUAYO MD [Primary Care Provider] - 7 Days Forms: [facility] Discharge Summary
[2021-03-01 16:50] VITALS: BP 120/75
== END 2021-03-01 18:50 | disposition home or self-care (01) | DRG 765 ==
LOC: TRG 18:57 → APU 19:09 → LD 21:36 → TRG 02-27 10:15 → LD 02-27 10:16 → OB 02-27 12:58
PROVIDERS: ADMIT Obstetrics & Gynecology; ATTEND Obstetrics & Gynecology
PROC: 10D00Z1 Extraction of Products of Conception, Low, Open Approach (ICD-10-PCS; principal; 2021-02-27)
PROC: 3E0234Z Introduction of Serum, Toxoid and Vaccine into Muscle, Percutaneous Approach (ICD-10-PCS; 2021-02-28)
DX: O76 Abnormality in fetal heart rate and rhythm complicating labor and delivery (principal); D62 Acute posthemorrhagic anemia; Z37.0 Single live birth; Z3A.40 40 weeks gestation of pregnancy; Z23 Encounter for immunization; O90.81 Anemia of the puerperium
CPT/HCPCS: 36415; 59025; 80053; 81001; 82565; 83615; 85014; 85018; 85027; 86592; 86850; 86900; 86901; 88307; G0378; J0690; J1100; J1885; J2270; J2405; J2590; J3010; J3490; J7120; J7121; U0003